=== PATIENT | male | born 1975 | race Caucasian/White ===

== ENCOUNTER 2022-07-28 15:24 | Emergency (ER) | payer SELFPAY ==
[~2022-07-28] VITALS: Ht 175.3 cm; Wt 91.0 kg
[2022-07-28 15:52] VITALS: BP 122/76
[2022-07-28 19:29] LABS: CHLORIDE 110 mEq/L (98-107)
[2022-07-28 19:31] LABS: PROTHROMBIN TIME 10.8 sec (9.6-11.0)
[2022-07-28 19:33] LABS: EOSINOPHILS % 0.8 % (0.0-5.0); HEMATOCRIT. 49.6 % (42.0-52.0); HEMOGLOBIN. 16.4 g/dL (14.0-18.0); LYMPHOCYTES % 26.4 % (20.0-50.0); MEAN CORPUSCULAR HEMOGLOBIN 29.8 pg (28.0-32.0); MEAN CORPUSCULAR VOLUME 90.2 fL (80.0-94.0); MEAN PLATELET VOLUME 8.3 fl (7.4-10.4); MONOCYTES % 5.3 % (2.0-8.0); NEUTROPHILS % 66.5 % (40.0-76.0); PLATELET 239 x1000/uL (130-400); RED CELL DISTRIBUTION WIDTH 14.6 % (11.6-14.6)
[2022-07-28 19:43] LABS: CREATINE KINASE 83 IU/L (39-308); ETHANOL BLOOD 295 mg/dL
== END 2022-07-28 20:05 | disposition home or self-care (01) ==
LOC: ER 15:24
DX: F10.129 Alcohol abuse with intoxication, unspecified (principal); Y90.8 Blood alcohol level of 240 mg/100 ml or more
CPT/HCPCS: 36415; 80053; 80305; 80307; 80320; 80329; 81003; 82140; 82550; 84443; 85025; 93005; 99284; G0480